=== PATIENT | female | born 1990 | race African-American/Black ===

== ENCOUNTER 2023-05-14 08:11 | Outpatient (REF) | payer OTHER, SELFPAY ==
--- NOTE | ~2023-05-14 | US_ITS ---
EXAMINATION: US ABDOMEN COMPLETE CLINICAL INFORMATION: Abdominal pain. COMPARISON: None available. TECHNIQUE: Real-time imaging of the abdominal viscera. Limited visualization due to bowel gas. FINDINGS: PANCREAS: Limited visualization of pancreatic tail and head. Imaged portion of pancreatic body is unremarkable. ABDOMINAL AORTA: Nonaneurysmal. INFERIOR VENA CAVA: Visualized portions are normal. LIVER: Increased hepatic parenchymal heterogeneity and echogenicity could be associated with hepatocellular disease/hepatic steatosis and substantially limits visualization. Correlation with liver function tests and clinical exam recommended to determine further management. GALLBLADDER: No gallstones. No gallbladder wall thickening. COMMON BILE DUCT: Normal in caliber measuring 0.3 cm in diameter. RIGHT KIDNEY: No hydronephrosis. No renal calculi. Limited visualization. The kidney measures 10.2 cm in maximum dimension. LEFT KIDNEY: No hydronephrosis. No renal calculi. Limited visualization. The kidney measures 9.7 cm in maximum dimension. SPLEEN: Poorly visualized. The spleen measures 6.2 cm in maximum dimension. FREE FLUID: None. US/US abdomen complete IMPRESSION: Increased hepatic parenchymal heterogeneity and echogenicity could be associated with hepatocellular disease/hepatic steatosis and substantially limits visualization. Correlation with liver function tests and clinical exam recommended to determine further management.
--- NOTE | ~2023-05-14 | US_ITS ---
EXAMINATION: US PELVIS CLINICAL INFORMATION: Pelvic pain, IUD check, irregular periods. COMPARISON: None available. TECHNIQUE: Ultrasound of the pelvis is performed using both transabdominal and transvaginal transducers along with Doppler. Transvaginal imaging is performed due to inadequate visualization transabdominally. FINDINGS: The uterus is heterogeneous and measures 8.8 x 4.4 x 5.0 cm, volume 101.4 mL. 1.1 x 1.0 x 0.8 cm hypoechoic left uterine mass is characteristic of a fibroid. No significant free fluid. IUD in place within the endometrial cavity. Endometrial thickness is 4 mm. Right ovary measures 4.3 x 3.8 x 5.1 cm, volume 24.1 mL. 2.6 x 2.9 x 2.2 cm complex right ovarian cyst with low-level internal echoes and septations. Left ovary measures 3.0 x 4.9 x 3.7 cm, volume 27.7 mL. 3.4 x 2.1 x 2.1 cm left ovarian cyst is likely simple. US/US pelvic and transvaginal IMPRESSION: 1. A 1.1 cm left uterine mass is characteristic of a fibroid. 2. IUD in place within the endometrial cavity. Endometrial thickness is 4 mm. 3. A 2.9 cm complex right ovarian cyst with low-level internal echoes and septations. 4. A 3.4 cm left ovarian cyst is likely simple. 5. Correlation with clinical exam recommended to determine further management. Recommend follow-up ultrasound in 6-8 weeks.
== END 2023-05-14 08:12 | disposition home or self-care (01) ==
LOC: HO.UMASIMG 08:11
PROVIDERS: Visit Provider Family Medicine
DX: M54.59 Other low back pain (principal); N75.0 Cyst of Bartholin's gland; R10.9 Unspecified abdominal pain
CPT/HCPCS: 76700; 76830; 76856